=== PATIENT | male | born 1975 | race Caucasian/White ===

== ENCOUNTER 2017-05-09 08:26 | Outpatient (CLI) | payer OTHER ==
[2017-05-09] MEDS ORDERED: GADOBUTROL 15 MMOL/15 ML VIAL IV ONE (09:57)
--- NOTE | 2017-05-09 17:53 | MRI Report ---
EXAM: LEFT ANKLE/HINDFOOT MRI WITHOUT AND WITH CONTRAST EXAM DATE: 05/09/2017 10:15 a.m. CLINICAL HISTORY: Stepped on a nail 1 month ago. Ongoing pain. Question infection. COMPARISON: None. TECHNIQUE: Multiplanar, multisequence T1-weighted and fluid-sensitive sequences of the ankle before a nd after administration of intravenous contrast. IV contrast: 15 mL of Gadavist. Other: None. FINDINGS: Bones: There is a small bony calcaneal spur with focal marrow edema. The spur is adjacent to the marcelo chment of the plantar fascia. There are subcortical cysts surrounding the sinus tarsi. Articular Cartilage: Unremarkable. Ligaments: The tibiofibular ligaments are not visualized in all planes. The medial and lateral collat eral ligaments appear normal. Anterior Tendons: The tibialis anterior, extensor hallucis longus, and extensor digitorum longus tend ons are unremarkable. Medial Tendons: The tibialis posterior, flexor digitorum longus, and flexor hallucis longus tendons a re unremarkable. Lateral Tendons: The peroneus brevis and longus are unremarkable. Achilles Tendon: The Achilles tendon is unremarkable. Musculature: No edema or fatty atrophy. Other: There is focal thickening of the plantar fascia with high T1, high T2 signal change adjacent t o its calcaneal attachment, consistent with plantar fasciitis. There is fat signal and some edema in the sinus Tarsi. There is a small ankle effusion. The subcutaneous tissues are unremarkable. No absce ss or cellulitis. IMPRESSION: 1. Findings consistent with plantar fasciitis. Edema of the adjacent calcaneum. 2. 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 The medial and lateral collateral ligament complexes appear unremarkable. [facility] MUSCULOSKELETAL RADIOLOGY SECTION Referring Provider Line: [phone] SITE ID: [id number]
== END 2017-05-09 08:27 | disposition home or self-care (01) ==
LOC: DI 08:26
PROVIDERS: ATTEND Registered Nurse Diabetes Educator
DX: M19.072 Primary osteoarthritis, left ankle and foot (principal); R60.0 Localized edema
CPT/HCPCS: 73720; A9585